=== PATIENT | female | born 1945 | race Caucasian/White ===

== ENCOUNTER 2016-10-19 14:30 | Inpatient (IN) | payer BC ==
[~2016-10-19] VITALS: Ht 162.6 cm; Wt 70.0 kg
[2016-10-19 18:20] VITALS: BP 120/64
[2016-10-19 23:45] VITALS: BP 114/69
[2016-10-20] MEDS ORDERED: DOCUSATE SODIU100 MG PO (02:08)
[2016-10-20] MEDS ORDERED: DILAUDID4 MG PO (02:10)
[2016-10-20] MEDS ORDERED: DILAUDID2 MG PO (02:10)
[2016-10-20] MEDS ORDERED: MS CONTIN,ORAMO15 M1 PO (02:11)
[2016-10-20] MEDS ORDERED: MILK OF MAGN PO (02:11)
[2016-10-20] MEDS ORDERED: SENNA-GEN8.6 MG PO (02:12)
[2016-10-20] MEDS ORDERED: MIRALAX17 GM PO (02:12)
[2016-10-20] MEDS ORDERED: FLEXERIL10 MG PO (02:13)
[2016-10-20] MEDS ORDERED: TYLENOL REGULA325 MG PO (02:14)
[2016-10-20] MEDS ORDERED: NORVASC5 MG PO (02:14)
[2016-10-20] MEDS ORDERED: SYNTHROID112 MCG PO (02:15)
[2016-10-20] MEDS ORDERED: NEURONTIN300 MG PO (02:15)
[2016-10-20] MEDS ORDERED: PRILOSEC20 MG PO (02:16)
[2016-10-20] MEDS ORDERED: PREDNISONE5 MG PO (02:16)
[2016-10-20] MEDS ORDERED: CRESTOR20 MG PO (02:17)
[2016-10-20] MEDS ORDERED: INDERAL LA120 MG PO (02:17)
[2016-10-20] MEDS ORDERED: REQUIP0.25 MG PO (02:17)
[2016-10-20] MEDS ORDERED: AFRIN,GENASAL D15 ML BOTH NARES (02:18)
[2016-10-20] MEDS ORDERED: VITAMIN D31000 UNIT PO (02:19)
[2016-10-20] MEDS ORDERED: DIOVAN320 MG PO (02:19)
[2016-10-20] MEDS ORDERED: SULFASALAZINE500 MG PO (02:21)
[2016-10-20 05:11] VITALS: BP 118/73
[2016-10-20 07:19] LABS: HEMATOCRIT 27.4 % (36.0-46.0); MCH 29.4 PG (29.0-34.0); MCHC 33.2 G/DL (30.0-36.0); MCV 88.4 FL (83-99); PLATELET COUNT 572 K/uL (156-360); RBC DIS.WIDTH-CV 15.4 % (11.8-14.6); RBC DIS.WIDTH-SD 49.4 % (39-53)
[2016-10-20 07:31] LABS: ALKALINE PHOSPHATASE 86 IU/L (3-129); ANION GAP 9 MEQ/L (2-14); CHLORIDE 106 MEQ/L (99-109); GFR ESTIMATE (CALCULATED) > 59 mL/min/; GLUCOSE 104 mg/dL (70-99); POTASSIUM 3.8 MEQ/L (3.7-5.4); SAMPLE HEMOLYSIS CHECK 0; SAMPLE ICTERIC CHECK 0; SAMPLE LIPEMIA CHECK 0; SODIUM 139 MEQ/L (136-147); TOTAL BILIRUBIN 0.3 MG/DL (0.0-1.0); UREA NITROGEN (BUN) 13 mg/dL (9-23)
[2016-10-20 15:07] VITALS: BP 112/65
[2016-10-21 05:50] VITALS: BP 137/63
[2016-10-21 15:43] VITALS: BP 128/61
[2016-10-22 03:59] VITALS: BP 131/68
[2016-10-22 09:56] VITALS: BP 118/70
[2016-10-22 14:45] VITALS: BP 90/55
[2016-10-22 21:00] VITALS: BP 111/64
[2016-10-23 04:51] VITALS: BP 114/56
[2016-10-23 15:58] VITALS: BP 97/53
[2016-10-23 21:00] VITALS: BP 119/57
[2016-10-24 05:31] VITALS: BP 117/58
[2016-10-24 15:00] VITALS: BP 115/61
[2016-10-25 06:15] VITALS: BP 120/58
[2016-10-25 15:12] VITALS: BP 99/54
[2016-10-26 04:26] VITALS: BP 151/77
[2016-10-26 05:25] LABS: HEMATOCRIT 31.9 % (36.0-46.0); MCH 29.1 PG (29.0-34.0); MCV 90.9 FL (83-99); PLATELET COUNT 500 K/uL (156-360); RBC DIS.WIDTH-CV 15.3 % (11.8-14.6); RBC DIS.WIDTH-SD 49.9 % (39-53); RED BLOOD COUNT 3.51 M/uL (3.80-5.20); WHITE BLOOD COUNT 8.1 K/uL (4.1-10.2)
[2016-10-26 05:56] LABS: BASOPHIL COUNT 0.1 K/uL (0-0.1); EOSINOPHIL (%) 3.5 % (0-5); EOSINOPHIL COUNT 0.3 K/uL (0-0.3); IMMATURE GRANULOCYTE (%) 0.2 % (0.0-0.7); LYMPHOCYTE COUNT 1.8 K/uL (1.0-2.8); MONOCYTE (%) 7.8 % (3-12); MONOCYTE COUNT 0.6 K/uL (0-0.8); NEUTROPHIL (%) 66.2 % (45-76); NEUTROPHIL COUNT 5.4 K/uL (1.8-6.4)
[2016-10-26 06:11] LABS: ALKALINE PHOSPHATASE 96 IU/L (3-129); ANION GAP 10 MEQ/L (2-14); CHLORIDE 104 MEQ/L (99-109); GFR ESTIMATE (CALCULATED) > 59 mL/min/; GLUCOSE 97 mg/dL (70-99); POTASSIUM 4.5 MEQ/L (3.7-5.4); SAMPLE HEMOLYSIS CHECK 0; SAMPLE ICTERIC CHECK 0; SAMPLE LIPEMIA CHECK 0; SODIUM 141 MEQ/L (136-147); TOTAL BILIRUBIN 0.3 MG/DL (0.0-1.0); UREA NITROGEN (BUN) 14 mg/dL (9-23)
[2016-10-26 16:42] VITALS: BP 104/59
[2016-10-27 05:41] VITALS: BP 134/64
[2016-10-27 15:29] VITALS: BP 102/57
[2016-10-28 05:26] VITALS: BP 140/65
[2016-10-28 07:29] VITALS: BP 135/69
[2016-10-28 15:00] VITALS: BP 99/56
[2016-10-29 05:49] VITALS: BP 139/70
[2016-10-29 07:02] VITALS: BP 112/58
[2016-10-29 15:31] VITALS: BP 115/67
[2016-10-30 05:22] VITALS: BP 117/63
[2016-10-30 15:01] VITALS: BP 94/53
[2016-10-30 16:06] VITALS: BP 110/60
[2016-10-31 04:51] VITALS: BP 166/68
[2016-10-31 15:36] VITALS: BP 135/71
[2016-11-01 04:53] VITALS: BP 161/72
[2016-11-01 15:57] VITALS: BP 113/62
[2016-11-01 22:47] LABS: ADD MIUA? YES; BILIRUBIN NEGATIVE; BLOOD SMALL; COLOR YELLOW ((YELLOW)); GLUCOSE (STRIP) NEGATIVE; KETONES NEGATIVE; LEUKOCYTES MODERATE; NITRITE POSITIVE; PROTEIN (STRIP) NEGATIVE; SPECIFIC GRAVITY 1.013 (1.000-1.030); UROBILINOGEN 0.2 MG/DL (0.2-1.0)
[2016-11-01 22:59] LABS: BACTERIA 3+ /HPF; EPITHELIAL CELLS RARE /HPF; MUCUS NONE SEEN /LPF; WHITE BLOOD CELLS 40-50 /HPF (0-5)
[2016-11-02 04:55] VITALS: BP 156/74
[2016-11-02 15:46] VITALS: BP 128/79
[2016-11-03 05:31] VITALS: BP 125/65
[2016-11-03] MEDS ORDERED: FLEXERIL10 MG PO (11:25)
[2016-11-03] MEDS ORDERED: ROPINIROLE HC0.25 MG PO (11:27)
[2016-11-03] MEDS ORDERED: PANTOPRAZOLE SO40 MG PO (11:28)
[2016-11-03] MEDS ORDERED: FLORASTOR250 MG PO (11:28)
[2016-11-03] MEDS ORDERED: KENALOG,ARISTOC15 G3 TP (11:28)
[2016-11-03] MEDS ORDERED: ASCORBIC ACID500 M3 PO (11:29)
[2016-11-03] MEDS ORDERED: THERAGRAN1 TABLET PO (11:29)
[2016-11-03] MEDS ORDERED: FOLIC ACID1 MG PO (11:29)
[2016-11-03] MEDS ORDERED: LIDOCAINE700 MG TD (11:29)
[2016-11-03] MEDS ORDERED: GABAPENTIN300 MG PO (11:30)
[2016-11-03] MEDS ORDERED: GABAPENTIN400 MG PO (11:30)
[2016-11-03] MEDS ORDERED: DILAUDID4 MG PO (11:30)
[2016-11-03] MEDS ORDERED: Thiamine,Vitamin B1 PO (11:30)
[2016-11-03] MEDS ORDERED: NITROFURANTOIN50 MG PO (12:25)
== END 2016-11-03 13:43 | DRG 559 ==
LOC: 3WEST 14:30
PROVIDERS: Physical Medicine & Rehabilitation Pain Medicine; Psychiatry & Neurology Neurology
PROC: F07M0ZZ Range of Motion and Joint Mobility Treatment of Musculoskeletal System - Whole Body (ICD-10-PCS; principal; 2016-10-19)
DX: Z47.82 Encounter for orthopedic aftercare following scoliosis surgery (principal); G93.40 Encephalopathy, unspecified; D62 Acute posthemorrhagic anemia; F10.99 Alcohol use, unspecified with unspecified alcohol-induced disorder; G62.9 Polyneuropathy, unspecified; N39.0 Urinary tract infection, site not specified; Z47.89 Encounter for other orthopedic aftercare; Z48.811 Encounter for surgical aftercare following surgery on the nervous system; Z98.1 Arthrodesis status; T81.89XD Other complications of procedures, not elsewhere classified, subsequent encounter; D47.3 Essential (hemorrhagic) thrombocythemia; E78.00 Pure hypercholesterolemia, unspecified; E03.9 Hypothyroidism, unspecified; G89.4 Chronic pain syndrome; G89.18 Other acute postprocedural pain; M54.5 Low back pain; K27.9 Peptic ulcer, site unspecified, unspecified as acute or chronic, without hemorrhage or perforation; M81.0 Age-related osteoporosis without current pathological fracture; I10 Essential (primary) hypertension; M06.9 Rheumatoid arthritis, unspecified; M19.90 Unspecified osteoarthritis, unspecified site; M25.571 Pain in right ankle and joints of right foot; R21 Rash and other nonspecific skin eruption; Z74.09 Other reduced mobility; R26.2 Difficulty in walking, not elsewhere classified; R53.1 Weakness; B96.20 Unspecified Escherichia coli [E. coli] as the cause of diseases classified elsewhere
CPT/HCPCS: 71010; 80053; 81003; 85025; 85027; 87077; 87086; 87186; 97110 GO; 97530 GP; J7512